=== PATIENT | male | born 1945 | race Caucasian/White ===

== ENCOUNTER 2019-12-28 11:11 | Outpatient (REF) | payer MEDICARE, SELFPAY ==
[2019-12-28 14:46] LABS: PSA,Total (Free>4and<10) 1.76 ng/mL (0.00-4.00)
== END 2019-12-28 11:12 | disposition home or self-care (01) ==
LOC: HO.10HDL 11:11
PROVIDERS: Visit Provider Urology
DX: N40.1 Benign prostatic hyperplasia with lower urinary tract symptoms (principal)
CPT/HCPCS: 84153

== ENCOUNTER → 2019-12-30 09:23 | Outpatient (BNVA) | payer MEDICARE, SELFPAY | PROVIDERS: PCP Internal Medicine; Referring Provider Internal Medicine; Visit Provider Urology | DX: Z76.89 Persons encountering health services in other specified circumstances (principal) | CPT/HCPCS: 52000; 99212 ==

== ENCOUNTER 2020-07-05 12:51 | Outpatient (REF) | payer MEDICARE, SELFPAY ==
[2020-07-09 09:17] LABS: Urine Cytology See Pathology rpt
== END 2020-07-05 12:52 | disposition home or self-care (01) ==
LOC: HO.LNP 12:51
PROVIDERS: PCP Internal Medicine; Visit Provider Urology
DX: N40.1 Benign prostatic hyperplasia with lower urinary tract symptoms (principal); N32.3 Diverticulum of bladder; N13.8 Other obstructive and reflux uropathy; R97.20 Elevated prostate specific antigen [PSA]; Z85.51 Personal history of malignant neoplasm of bladder
CPT/HCPCS: 52000; 81002; 88112; 99212

== ENCOUNTER 2021-05-13 10:26 | Outpatient (REF) | payer MEDICARE, SELFPAY ==
[2021-05-13 13:34] LABS: MANUAL DIFF FLAG NO
[2021-05-13 13:36] LABS: Basophils Percent Auto 0.3 % (0-2); Eosinophils Absolute Auto 0.4 X10*3/uL (0.0-0.4); Eosinophils Percent Auto 4.8 % (0-4); Hematocrit 44.7 % (42.0-52.0); Hemoglobin 14.2 g/dl (14.0-18.0); Imm Gran Abs Auto 0.29 X10*3/uL (0.00-0.03); Lymphocytes Absolute Auto 1.7 X10*3/uL (1.2-4.9); Lymphocytes Percent Auto 23.3 % (20-40); Mean Corpuscular HGB Conc 31.8 g/dl (31.0-36.0); Mean Corpuscular Hemoglobin 29.5 pg (27.0-33.0); Mean Corpuscular Volume 92.7 fL (80.0-98.0); Mean Platelet Volume 9.9 fL (9.4-12.4); Monocytes Absolute Auto 1.1 X10*3/uL (0.1-1.2); Monocytes Percent Auto 15.5 % (2-11); Neutrophils Absolute Auto 3.8 x10*3/uL (2.0-8.3); Neutrophils Percent Auto 52.1 % (45-73); Platelet Count 154 X10*3/uL (160-400); Red Blood Count 4.82 X10*6/uL (4.60-5.80); Red Cell Distribution Width 15.2 % (11.0-16.0); White Blood Count 7.3 X10*3/uL (4.8-10.8)
[2021-05-13 13:57] LABS: Alanine Aminotransferase 24 U/L (0-40); Albumin Level 4.4 g/dL (3.5-5.0); Alkaline Phosphatase 87 U/L (39-117); Anion Gap 13 (12-20); Aspartate Amino Transferase 23 U/L (5-37); Bilirubin Total 0.7 mg/dL (0.0-1.0); Blood Urea Nitrogen 14 mg/dL (9-16); Calcium 10.2 mg/dL (8.4-10.2); Carbon Dioxide 30 mmol/L (22-29); Chloride 103 mmol/L (96-108); Cholesterol 146 mg/dL; Estimated Glomerular Filt Rate > 60; Glucose Fasting 98 mg/dL (60-99); HDL Cholesterol 41 mg/dL; LDL Cholesterol Calculated 68 mg/dl; Potassium 4.9 mmol/L (3.3-5.1); Sodium 141 mmol/L (135-145); Total Protein 7.6 g/dL (6.5-8.0); Triglycerides 188 mg/dL
[2021-05-13 14:12] LABS: Thyroid Stimulating Hormone 2.05 uIU/mL (0.32-4.0)
== END 2021-05-13 10:27 | disposition home or self-care (01) ==
LOC: HO.MANLDS 10:26
PROVIDERS: PCP Internal Medicine; Visit Provider Internal Medicine
DX: I25.9 Chronic ischemic heart disease, unspecified (principal)
CPT/HCPCS: 36415; 80053; 80061; 84443; 85025

== ENCOUNTER 2021-07-05 08:52 | Outpatient (REF) | payer MEDICARE, SELFPAY ==
[2021-07-05 16:52] LABS: Urine Cytology See Pathology rpt
== END 2021-07-05 08:53 | disposition home or self-care (01) ==
LOC: HO.LAB 08:52
PROVIDERS: PCP Internal Medicine; Visit Provider Urology
DX: C67.9 Malignant neoplasm of bladder, unspecified (principal); N32.3 Diverticulum of bladder; N40.1 Benign prostatic hyperplasia with lower urinary tract symptoms; N13.8 Other obstructive and reflux uropathy
CPT/HCPCS: 52000; 88112; 99212

== ENCOUNTER 2022-06-23 08:15 | Outpatient (REF) | payer MEDICARE, SELFPAY ==
[2022-06-23 11:47] LABS: Cholesterol 133 mg/dL; HDL Cholesterol 41 mg/dL; LDL Cholesterol Calculated 62 mg/dl; Triglycerides 154 mg/dL
== END 2022-06-23 08:16 | disposition home or self-care (01) ==
LOC: HO.MANLDS 08:15
PROVIDERS: Visit Provider Internal Medicine
DX: E78.00 Pure hypercholesterolemia, unspecified (principal)
CPT/HCPCS: 36415; 80061

== ENCOUNTER 2022-06-26 07:33 | Outpatient (REF) | payer MEDICARE, SELFPAY ==
[2022-06-26 11:42] LABS: PSA,Total (Free>4and<10) 0.94 ng/mL (0.00-4.00)
== END 2022-06-26 07:34 | disposition home or self-care (01) ==
LOC: HO.10HDL 07:33
PROVIDERS: Visit Provider Urology
DX: R97.20 Elevated prostate specific antigen [PSA] (principal); Z12.5 Encounter for screening for malignant neoplasm of prostate
CPT/HCPCS: 36415; 84153

== ENCOUNTER 2022-07-04 08:48 | Outpatient (REF) | payer MEDICARE, SELFPAY ==
[2022-07-04 16:39] LABS: Urine Cytology See Pathology rpt
== END 2022-07-04 08:49 | disposition home or self-care (01) ==
LOC: HO.LAB 08:48
PROVIDERS: PCP Internal Medicine; Visit Provider Urology
DX: C67.9 Malignant neoplasm of bladder, unspecified (principal); N40.1 Benign prostatic hyperplasia with lower urinary tract symptoms; N13.8 Other obstructive and reflux uropathy; R97.20 Elevated prostate specific antigen [PSA]
CPT/HCPCS: 52000; 88112; 99212

== ENCOUNTER 2023-06-25 08:49 | Outpatient (REF) | payer MEDICARE, SELFPAY ==
[2023-06-25 10:35] LABS: Prostate Specific Antigen 3.25 ng/mL (<0.05-4.0)
== END 2023-06-25 08:50 | disposition home or self-care (01) ==
LOC: HO.LAB 08:49
PROVIDERS: PCP Internal Medicine; Visit Provider Urology
DX: N40.1 Benign prostatic hyperplasia with lower urinary tract symptoms (principal); N13.8 Other obstructive and reflux uropathy; Z12.5 Encounter for screening for malignant neoplasm of prostate
CPT/HCPCS: 36415; 84153

== ENCOUNTER 2023-07-08 08:49 | Outpatient (AMB) | payer MEDICARE, SELFPAY ==
--- NOTE | 2023-07-08 08:52 | A.OFFVIS_ITS ---
Intake Visit Reasons: Cysto/PSA(set)Confirmed Intake Note: Patient is Present for Cystoscopy Urology Med: Finasteride, Tamsulosin Antibiotic Allergy:None Blood Thinner: Aspirin, Clopidogrel URO- G Disposable Cystoscope lot:[id number] exp:01/22/2026 Allergies atorvastatin [Lipitor] Allergy (Unknown, Verified 07/08/23 08:55) nausea and vomiting HPI Comments Details: Miles Ellington is a pleasant male. He is a patient of Dr. Bartlett. He is here for the following urologic conditions -Bladder cancer -Prostate nodule -Prostatitis Yearly visit Open prostate post TURP No evidence of recurrent disease Had come off finasteride last year hence slight rise in PSA Twelve month follow-up Lower Urinary Tract Symptoms: Current visit is for further evaluation of, lower urinary tract symptoms, predominate obstructive symptoms. Current treatment includes Alpha-ciara - PSA slight rise off finasteride Prostate Symptom Score Moderate (9-19), Bother 2 07/03 , Mild (0-8), Bother 2. PSA 01/02 1.8, 06/03 1.2 Symptoms include incomplete emptying, weak stream, nocturia (>2), and are stable. Results from testing include cystoscopy high riding bladder neck (median bar) 05/30 trabeculation, has TURP defect with nodular median area Bladder Cancer: Initial diagnosis 2009 T1 low-grade Continue with evaluation Bladder cancer was initially diagnosed Feb 2010 , during evaluation for gross hematuria. Bladder intervention(s) performed TURBT - , T1 invades subepthium, Low Grade. Recurrence Risk per EORTC Low Risk. Bladder cancer risk factors Organic Solvent exposure Yes smoking Yes Prior Cystoscopy 05/30 , Negative, 05/31 Negative, 06/01 - NAD - dilated with trabeculation and small diverticular, 07/04 NAD - midline diverticulum, 07/07 cysto NAD Prior Cytology 05/30 , Negative for malignancy 05/31 , Negative for malignancy. Planned treatment surveillance protocol. Elevated PSA/Abnormal KRISTIN: He presents for further evaluation of prostate nodule. Current management is observation. Laboratory investigations include a total PSA evaluation September 2013 1.9, March 2015 2.5, 05/30 2.6, 07/03 4.6, 07/06 1.0, 07/07 3.2 Individualized Prostate Cancer Risk Calculator < 5% high risk, Would like to continue with observation and understands and accepts the risks of a possible delay in diagnosis. A TRUS biopsy has been performed and is negative July 2003 [facility] Medical History Hypercholesterolemia Bladder diverticulum Benign prostatic hyperplasia with lower urinary tract symptoms Nocturia Incomplete emptying of bladder Prostate nodule Bladder cancer Surgical History History of surgery Social History Advance Directives Date on File: 12/28/19 Review of Systems Const Denies chills and Denies fever(s) Card Reports no additional complaints and Denies syncope Resp Denies cough GI Denies abdominal pain and Denies heartburn Reports as per HPI and Denies change in libido Neuro Denies syncope Psych Denies change in libido Endo Denies change in libido Physical Exam Const General: cooperative, healthy appearing, comfortable and no acute distress Orientation/consciousness: patient oriented x3 HEENT Face and sinus: Yes normal facial exam Mouth: moist mucous membranes Neck Neck: Yes normal visual inspection, Yes full ROM and Yes trachea midline Chest Chest palpation & inspection: normal inspection of the chest Resp Effort & Inspection: normal respiratory effort, able to speak in complete sentences and no respiratory distress GI Inspection: Yes normal to inspection Back/Spine/Pelvis Cervical Spine: normal cervical lordosis Thoracic/Lumbar Spine: thoracic and lumbar spine normal to inspection Skin General skin exam: no rashes or lesions noted Neuro General: patient oriented x3, gait normal, tone normal and moves all extremities Extrem General: Yes normal to inspection and Yes capillary refill normal Office Procedures Cystoscopy Consent Discussed risk and benefit or proposed procedure with the patient. Information consent for procedure given to the patient. Discussed technical aspects, risks, benefits and alternatives in full. Addressed all of the patient's questions and concerns regarding the procedure. The patient demonstrated knowledge and understanding. They wish to proceed with this procedure. Preparation The patient was prepped in the usual manner. A control clerk was present and in the room. Genitalia was prepped with betadine solution in a sterile manner. Lidocaine Jelly 2% was placed into the urethra and 16Fr flexible Olympus cystoscope was inserted into the meatus after adequate lubrication. Procedure Cystoscopy performed using a disposable Urovue digital 16 [place]e cystoscope. Meatus uncircumcised Urethra anterior and posterior urethra normal Prostatic Urethra open TURP defect Bladder examination with retroflexion of cystoscope Bladder Orifices normal shape and position Bladder Capacity normal Trabeculations grade 2 Cellule Formation - Diverticulum Formation - Mucosal Erythema - Bladder Tumor - 01247-[id number] DISPOSABLE SCOPE URO-G FLEXIBLE SCOPE Procedure code (CPT) selection complete Office Meds lidocaine HCl 2 % mucosal jelly in applicator Performing Provider: Rc Agarwal MD Performing Location: [facility] Administered by: Ferdinand Harris LPN on 07/08/23 09:02 Dose Route Admin Location Dispensed Lot Number Expiration Date NDC Mat Repairer 10 mL intra-urethral 10 mL nitrofurantoin monohydrate/macrocrystals 100 mg capsule Performing Provider: Rc Agarwal MD Performing Location: [facility] Administered by: Ferdinand Harris LPN on 07/08/23 09:02 Dose Route Admin Location Dispensed Lot Number Expiration Date NDC Mat Repairer 100 mg PO 1 cap naproxen 500 mg tablet Performing Provider: Rc Agarwal MD Performing Location: [facility] Administered by: Ferdinand Harris LPN on 07/08/23 09:02 Dose Route Admin Location Dispensed Lot Number Expiration Date NDC Mat Repairer 500 mg PO 1 tab Results AMB Urinalysis, Automated UA Leukoctes 0 Beatris/uL Last Edit by YAMIL Montague on 07/08/23 09:08 UA Nitrite Negative Last Edit by YAMIL Montague on 07/08/23 09:08 UA Urobilinogen 0.2 mg/dL Last Edit by YAMIL Montague on 07/08/23 09:0 8 UA Protein 0 mg/dL Last Edit by YAMIL Montague on 07/08/23 09:08 UA pH 6.0 Last Edit by YAMIL Montague on 07/08/23 09:08 UA Blood 0 Darrell/uL Last Edit by YAMIL Montague on 07/08/23 09:08 UA Specific [place] 1.015 Last Edit by YAMIL Montague on 07/08/23 09: 08 UA Ketone Negative Last Edit by YAMIL Montague on 07/08/23 09:08 UA Bilirubin 0 mg/dL Last Edit by YAMIL Montague on 07/08/23 09:08 UA Glucose 0 mg/dL Last Edit by YAMIL Montague on 07/08/23 09:08 Results Reviewed Results Reviewed: Laboratory Last Values Urine pH (Auto) 6.0 07/08/23 08:55 Specific [place] (Auto) 1.015 07/08/23 08:55 Urine Protein (Auto) 0 mg/dL 07/08/23 08:55 Glucose (UA)(Auto) 0 mg/dL 07/08/23 08:55 Urine Ketones (Auto) Negative 07/08/23 08:55 Urine Blood (Auto) 0 Darrell/uL 07/08/23 08:55 Urine Nitrite (Auto) Negative 07/08/23 08:55 Urine Bilirubin (Auto) 0 mg/dL 07/08/23 08:55 Urine Urobilinogen (Auto) 0.2 mg/dL 07/08/23 08:55 Leukocyte Esterase (Auto) 0 Beatris/uL 07/08/23 08:55 Assessment & Plan Assessment & Plan (1) Bladder cancer: Code(s): C67.9 - Malignant neoplasm of bladder, unspecified Category: Medical (2) BPH w urinary obs/LUTS: Code(s): N40.1 - Benign prostatic hyperplasia with lower urinary tract symptoms; N13.8 - Other obstructive and reflux uropathy Category: Medical (3) Elevated PSA: Code(s): R97.20 - Elevated prostate specific antigen [PSA] Category: Medical Plan Twelve month follow-up cystoscopy in labs Orders: Orders FISH Bladder Cancer Today C67.9 - Malignant neoplasm of bladder, unspecified AMB Cystoscopy Today C67.9 - Malignant neoplasm of bladder, unspecified AMB Urinalysis Automated Today C67.9 - Malignant neoplasm of bladder, unspecified, Z13.9 - Encounter for screening, unspecified Prostate Specific Antigen 364 Days N13.8 - Other obstructive and reflux uropathy, N40.1 - Benign prostatic hyperplasia with lower urinary tract symptoms Patient Instructions: Imaging studies, laboratory and physical exam results were discussed and reviewed in detail. No major barriers to patient understanding were identified. An opportunity to ask questions regarding the treatment plan was provided. All questions were answered. The patient expressed understanding and agreement with the above treatment plan. The patient is aware they should contact our office by phone for worsening of their current condition or the appearance of new urologic symptoms. Compliance is encouraged with any medications and followup testing that is ordered. It is a privilege to participate in the urologic care of your patient. If you have any questions or concerns regarding treatment for the above conditions, or other urologic issues, please do not hesitate to contact me. The office telephone contact is [phone]. This note is constructed using voice recognition software. While every effort has been made to ensure accuracy weigh machine operator errors may have been included. Yours sincerely, Dr cR Agarwal MD, ANNA MARIE [facility] - Urology Providers of Expert, Compassionate Care for the Genitourinary System Coding Level of Care Code Est Pt Level 4 (77779) Diagnoses Bladder cancer C67.9 BPH w urinary obs/LUTS N40.1; N13.8 Elevated PSA R97.20 CPT Codes Cystoscopy - CPT: 42050-[id number] ([id number])
== END 2023-07-08 09:28 | disposition home or self-care (01) ==
PROVIDERS: PCP Internal Medicine; Visit Provider Urology
DX: C67.9 Malignant neoplasm of bladder, unspecified (principal); N40.1 Benign prostatic hyperplasia with lower urinary tract symptoms; N13.8 Other obstructive and reflux uropathy; R97.20 Elevated prostate specific antigen [PSA]; Z13.9 Encounter for screening, unspecified
CPT/HCPCS: 52000; 99213

== ENCOUNTER 2023-07-08 08:49 | Outpatient (REF) | payer MEDICARE, SELFPAY | END 2023-07-08 08:50 | disposition home or self-care (01) | LOC: HO.LNP 08:49 | PROVIDERS: Visit Provider Urology | DX: C67.9 Malignant neoplasm of bladder, unspecified (principal); N40.1 Benign prostatic hyperplasia with lower urinary tract symptoms; N13.8 Other obstructive and reflux uropathy; R97.20 Elevated prostate specific antigen [PSA] | CPT/HCPCS: 52000; 81003; 88121; 99212 ==

== ENCOUNTER 2024-06-15 10:00 | Outpatient (REF) | payer MEDICARE, SELFPAY ==
[2024-06-15 14:05] LABS: Prostate Specific Antigen 1.47 ng/mL (<0.05-4.0)
== END 2024-06-15 10:01 | disposition home or self-care (01) ==
LOC: HO.MANLDS 10:00
PROVIDERS: Visit Provider Internal Medicine
DX: Z12.5 Encounter for screening for malignant neoplasm of prostate (principal); N40.0 Benign prostatic hyperplasia without lower urinary tract symptoms
CPT/HCPCS: 36415; 84153

== ENCOUNTER 2024-07-07 08:44 | Outpatient (AMB) | payer MEDICARE, SELFPAY ==
--- NOTE | 2024-07-07 09:00 | MHC.OFFVIS ---
Intake Visit Reasons: cysto/PSA Allergies atorvastatin [Lipitor] Allergy (Unknown, Verified 07/08/23 08:55) nausea and vomiting HPI Comments Details: Miles Ellington is a pleasant male. He is a patient of Dr. Bartlett. He is here for the following urologic conditions -Bladder cancer -Prostate nodule -Prostatitis Yearly visit Here for check cystoscopy UA today positive nitrite. Minimal symptoms. Given ciprofloxacin at time of procedure. PSA 1.5 only needs to be checked every few years Cystoscopy negative Lower Urinary Tract Symptoms: Current visit is for further evaluation of, lower urinary tract symptoms, predominate obstructive symptoms. Current treatment includes Alpha-ciara - PSA slight rise off finasteride Prostate Symptom Score Moderate (9-19), Bother 2 07/03 , Mild (0-8), Bother 2. PSA 01/02 1.8, 06/03 1.2, 07/08 1.5 Symptoms include incomplete emptying, weak stream, nocturia (>2), and are stable. Results from testing include cystoscopy high riding bladder neck (median bar) 05/30 trabeculation, has TURP defect with nodular median area Bladder Cancer: Initial diagnosis 2009 T1 low-grade Continue with evaluation Bladder cancer was initially diagnosed Feb 2010 , during evaluation for gross hematuria. Bladder intervention(s) performed TURBT - , T1 invades subepthium, Low Grade. Recurrence Risk per EORTC Low Risk. Bladder cancer risk factors Organic Solvent exposure Yes smoking Yes Prior Cystoscopy 05/30 , Negative, 05/31 Negative, 06/01 - NAD - dilated with trabeculation and small diverticular, 07/04 NAD - midline diverticulum, 07/07 cysto NAD, 07/08 NAD Prior Cytology 05/30 , Negative for malignancy 05/31 , Negative for malignancy. Planned treatment surveillance protocol. Elevated PSA/Abnormal KRISTIN: He presents for further evaluation of prostate nodule. Current management is observation. Laboratory investigations include a total PSA evaluation September 2013 1.9, March 2015 2.5, 05/30 2.6, 07/03 4.6, 07/06 1.0, 07/07 3.2 Individualized Prostate Cancer Risk Calculator < 5% high risk, Would like to continue with observation and understands and accepts the risks of a possible delay in diagnosis. A TRUS biopsy has been performed and is negative July 2003 [facility] Medical History Hypercholesterolemia Bladder diverticulum Benign prostatic hyperplasia with lower urinary tract symptoms Nocturia Incomplete emptying of bladder Prostate nodule Bladder cancer Surgical History History of surgery Social History Advance Directives Date on File: 12/28/19 Review of Systems Const Denies chills and Denies fever(s) Card Reports no additional complaints and Denies syncope Resp Denies cough GI Denies abdominal pain and Denies heartburn Reports as per HPI and Denies change in libido Neuro Denies syncope Psych Denies change in libido Endo Denies change in libido Physical Exam Const General: cooperative, healthy appearing, comfortable and no acute distress Orientation/consciousness: patient oriented x3 HEENT Face and sinus: Yes normal facial exam Mouth: moist mucous membranes Neck Neck: Yes normal visual inspection, Yes full ROM and Yes trachea midline Chest Chest palpation & inspection: normal inspection of the chest Resp Effort & Inspection: normal respiratory effort, able to speak in complete sentences and no respiratory distress GI Inspection: Yes normal to inspection Back/Spine/Pelvis Cervical Spine: normal cervical lordosis Thoracic/Lumbar Spine: thoracic and lumbar spine normal to inspection Skin General skin exam: no rashes or lesions noted Neuro General: patient oriented x3, gait normal, tone normal and moves all extremities Extrem General: Yes normal to inspection and Yes capillary refill normal Office Procedures Cystoscopy Consent Discussed risk and benefit or proposed procedure with the patient. Information consent for procedure given to the patient. Discussed technical aspects, risks, benefits and alternatives in full. Addressed all of the patient's questions and concerns regarding the procedure. The patient demonstrated knowledge and understanding. They wish to proceed with this procedure. Preparation The patient was prepped in the usual manner. A health care attorney was present and in the room. Genitalia was prepped with betadine solution in a sterile manner. Lidocaine Jelly 2% was placed into the urethra and 16Fr flexible Olympus cystoscope was inserted into the meatus after adequate lubrication. Procedure Cystoscopy performed using a disposable Urovue digital 16 [place] cystoscope. Meatus non circumcised Urethra anterior and posterior urethra normal Prostatic Urethra open bladder neck Bladder examination with retroflexion of cystoscope Bladder Orifices normal shape and position Bladder Capacity medium to large Trabeculations moderate grade 2 Cellule Formation no Diverticulum Formation - Mucosal Erythema - Bladder Tumor - [id number]-[id number] DISPOSABLE SCOPE URO-G FLEXIBLE SCOPE Procedure code (CPT) selection complete Office Meds lidocaine HCl 2 % mucosal jelly in applicator Performing Provider: Rc Agarwal MD Performing Location: [facility] [place] [facility] Administered by: Rc Agarwal MD on 07/07/24 09:32 Dose Route Admin Location Dispensed Lot Number Expiration Date ND Airline Transport Pilot 10 mL intra-urethral 10 mL ciprofloxacin HCl 500 mg tablet Performing Provider: Rc Agarwal MD Performing Location: [facility] [place] [facility] Administered by: Rc Agarwal MD on 07/07/24 09:32 Dose Route Admin Location Dispensed Lot Number Expiration Date ND Airline Transport Pilot 500 mg PO 1 tab naproxen 500 mg tablet Performing Provider: Rc Agarwal MD Performing Location: [facility] [place] [facility] Documented (not given) by: Rc Agarwal MD on 07/07/24 09:32 Reason Not Given: No Longer Necessary Assessment & Plan Assessment & Plan (1) Bladder cancer: Code(s): C67.9 - Malignant neoplasm of bladder, unspecified Category: Medical (2) BPH w urinary obs/LUTS: Code(s): N40.1 - Benign prostatic hyperplasia with lower urinary tract symptoms; N13.8 - Other obstructive and reflux uropathy Category: Medical Plan 12 month follow-up check cystoscopy Orders: Orders AMB Cystoscopy Today C67.9 - Malignant neoplasm of bladder, unspecified Medications: New lidocaine HCl 2% 10 mL intra-urethral ONCE 10 mL 0RF C67.9 - Malignant neoplasm of bladder, unspecified ciprofloxacin HCl 500 mg PO ONCE 1 tab 0RF C67.9 - Malignant neoplasm of bladder, unspecified naproxen 500 mg PO ONCE 1 tab 0RF C67.9 - Malignant neoplasm of bladder, unspecified levofloxacin 500 mg PO DAILY 3 days 3 tabs 0RF C67.9 - Malignant neoplasm of bladder, unspecified Patient Instructions: This note is constructed using voice recognition software. While every effort has been made to ensure accuracy metal expediter errors may have been included. Imaging studies, laboratory and physical exam results were discussed and reviewed in detail. No major barriers to patient understanding were identified. An opportunity to ask questions regarding the treatment plan was provided. All questions were answered. The patient expressed understanding and agreement with the above treatment plan. The patient is aware they should contact our office by phone for worsening of their current condition or the appearance of new urologic symptoms. Compliance is encouraged with any medications and followup testing that is ordered. It is a privilege to participate in the urologic care of your patient. If you have any questions or concerns regarding treatment for the above conditions, or other urologic issues, please do not hesitate to contact me. The office telephone contact is [phone]. Sincerely, Dr Rc Agarwal MD, ANNA MARIE [facility] - Urology Compassionate Specialist Care for the Genitourinary System Coding Level of Care Code Est Pt Level 4 (43499) Complex EM visit Add On G2211 Diagnoses Bladder cancer C67.9 BPH w urinary obs/LUTS N40.1; N13.8 CPT Codes Cystoscopy - CPT: 69646-[id number] ([id number])
== END 2024-07-07 09:37 | disposition home or self-care (01) ==
LOC: HO.HUSH 08:45
PROVIDERS: PCP Internal Medicine; Visit Provider Urology
DX: C67.9 Malignant neoplasm of bladder, unspecified (principal); N40.1 Benign prostatic hyperplasia with lower urinary tract symptoms; N13.8 Other obstructive and reflux uropathy; Z13.9 Encounter for screening, unspecified
CPT/HCPCS: 52000; 99214

== ENCOUNTER → 2024-07-07 08:44 | Outpatient (BNVA) | payer MEDICARE, SELFPAY | PROVIDERS: PCP Internal Medicine; Visit Provider Urology | DX: C67.9 Malignant neoplasm of bladder, unspecified (principal); N40.1 Benign prostatic hyperplasia with lower urinary tract symptoms; N13.8 Other obstructive and reflux uropathy | CPT/HCPCS: 52000; 81003; 99212 ==